=== PATIENT | male | born 1980 | race Caucasian/White ===

== ENCOUNTER 2018-09-21 09:28 | Outpatient (REF) | payer SELFPAY ==
[2018-09-21 12:06] LABS: Abs Immature Grans 0.01 k/cumm (0.0-0.09); Absolute Basophil Count 0.02 k/cumm (0.0-0.2); Absolute Eosinophil Count 0.17 k/cumm (0.0-0.7); Absolute Lymphocyte Count 1.43 k/cumm (1.2-3.4); Absolute Monocyte Count 0.27 k/cumm (0.11-0.7); Basophils % 0.5; Eosinophils % 4.6; HCT 43.1 % (40.0-50.0); HGB 14.4 g/dL (13.5-17.5); Immature Grans % 0.3; Lymphocytes % 38.6; Mean Corp. HGB Concentration 33.4 g/dL (32.0-36.0); Mean Corpuscular Hemoglobin 30.6 pg (27.0-33.0); Mean Corpuscular Volume 91.7 fL (80-95); Mean Platelet Volume 10.3 fL (8.0-11.0); Monocytes % 7.3; Neutrophils % 48.7; Platelet Count 232 x1000/uL (130-400); RBC Distribution Width 13.5 % (11.8-14.1)
[2018-09-21 12:14] LABS: ALT 35 U/L (12-78); AST 29 U/L (15-37); Albumin 4.2 g/dL (3.4-5.0); Alkaline Phosphatase 73 U/L (46-116); Anion Gap 9.3 mmol/L (3-11); BUN 23 mg/dL (7-18); Bilirubin, Total 0.6 mg/dL (0.2-1.0); CO2 29.7 mmol/L (21.0-32.0); CREATININE 1.14 mg/dL (0.70-1.30); Calcium 9.3 mg/dL (8.5-10.1); Chloride 101 mmol/L (98-107); Cholesterol 183 mg/dL (50-200); Glucose 114 mg/dL (70-100); HDL Cholesterol 48 mg/dL (40-60); LDL CHOLESTEROL 106 mg/dL (<100); Potassium 4.4 mmol/L (3.5-5.1); Sodium 140 mmol/L (136-145); Total Protein 8.2 g/dL (6.4-8.2); Triglyceride 116 mg/dL (30-150)
== END 2018-09-21 09:48 ==
LOC: NCHCN 09:28
PROVIDERS: PCP Nurse Practitioner Family; Visit Provider Nurse Practitioner Family
DX: Z00.00 Encounter for general adult medical examination without abnormal findings (principal); Z13.220 Encounter for screening for lipoid disorders; Z13.228 Encounter for screening for other metabolic disorders; Z13.0 Encounter for screening for diseases of the blood and blood-forming organs and certain disorders involving the immune mechanism
CPT/HCPCS: 80053; 80061; 83721; 85025

== ENCOUNTER 2018-09-27 14:10 | Outpatient (REF) | payer SELFPAY ==
[2018-09-27 19:39] LABS: Absolute Basophil Count 0.01 k/cumm (0.0-0.2); Absolute Eosinophil Count 0.09 k/cumm (0.0-0.7); Absolute Lymphocyte Count 1.62 k/cumm (1.2-3.4); Absolute Monocyte Count 0.26 k/cumm (0.11-0.7); Absolute Neutrophil Count 2.18 k/cumm (1.2-6.7); Basophils % 0.2; Eosinophils % 2.2; HCT 39.6 % (40.0-50.0); HGB 13.4 g/dL (13.5-17.5); Lymphocytes % 38.9; Mean Corp. HGB Concentration 33.8 g/dL (32.0-36.0); Mean Corpuscular Hemoglobin 30.7 pg (27.0-33.0); Mean Corpuscular Volume 90.8 fL (80-95); Mean Platelet Volume 10.3 fL (8.0-11.0); Monocytes % 6.3; Neutrophils % 52.4; Platelet Count 238 x1000/uL (130-400); RBC 4.36 m/cumm (4.50-6.00); RBC Distribution Width 13.2 % (11.8-14.1); White Blood Cell Count 4.16 k/cumm (4.4-10.8)
== END 2018-09-27 14:30 ==
LOC: NCHCN 14:10
PROVIDERS: PCP Nurse Practitioner Family; Visit Provider Nurse Practitioner Family
DX: R51 Headache (principal); Z00.00 Encounter for general adult medical examination without abnormal findings
CPT/HCPCS: 85025

== ENCOUNTER 2021-01-07 14:45 | Outpatient (REF) | payer OTHER, SELFPAY ==
[2021-01-07 19:34] LABS: Hemoglobin A1C 6.3 % (<5.7)
== END 2021-01-07 14:46 | disposition home or self-care (01) ==
LOC: NCHCN 14:45
PROVIDERS: PCP Nurse Practitioner Family; Visit Provider Nurse Practitioner
DX: R73.9 Hyperglycemia, unspecified (principal)
CPT/HCPCS: 83036

== ENCOUNTER 2022-07-14 13:50 | Outpatient (REF) | payer BC, SELFPAY ==
[2022-07-14 17:22] LABS: Absolute Basophil Count 0.02 10^3/uL (0.0-0.2); Absolute Eosinophil Count 0.05 10^3/uL (0.0-0.7); Absolute Lymphocyte Count 1.13 10^3/uL (1.2-3.4); Absolute Monocyte Count 0.23 10^3/uL (0.1-0.8); Absolute Neutrophil Count 2.77 10^3/uL (1.2-6.7); Basophils % 0.5; Eosinophils % 1.2; HCT 41.6 % (40.0-50.0); HGB 13.8 g/dL (13.5-17.5); Lymphocytes % 26.9; MCH 30.2 pg (27.0-33.0); MCHC 33.2 % (32.0-36.0); MCV 91 fL (80-95); MPV 10.1 fL (8.0-11.0); Monocytes % 5.5; Neutrophils % 65.9; Platelet Count 268 10^3/uL (130-400); RBC 4.57 10^6/uL (4.36-5.78); RDW 13.3 % (11.8-14.1); RDW-SD 44.8 fL
[2022-07-14 17:46] LABS: Hemoglobin A1C 6.4 % (<5.7)
[2022-07-14 18:00] LABS: Vitamin D 25 Total 34.9 ng/mL (30-100)
[2022-07-14 18:03] LABS: ALT 31 U/L (16-63); AST 18 U/L (15-37); Albumin 4.4 g/dL (3.4-5.0); Alkaline Phosphatase 76 U/L (46-116); Anion Gap 7.5 mmol/L (3-11); BUN 20 mg/dL (7-18); Bilirubin, Total 0.5 mg/dL (0.2-1.0); CO2 29.5 mmol/L (21.0-32.0); Calculated LDL 94 mg/dL (<100); Chloride 104 mmol/L (98-107); Cholesterol 156 mg/dL (<200); Estimated GFR 96.97 (mL/min/1.73m2); Glucose 118 mg/dL (74-106); HDL Cholesterol 51 mg/dL (40-60); Potassium 4.1 mmol/L (3.5-5.1); Sodium 141 mmol/L (136-145); TSH (W/Ref FT4) 0.72 uIU/mL (0.36-3.74); Total Protein 8.2 g/dL (6.4-8.2); Triglyceride 55 mg/dL (<150); Vitamin B12 1041 pg/mL (193-986)
== END 2022-07-14 13:51 | disposition home or self-care (01) ==
LOC: NCHCN 13:50
PROVIDERS: PCP Nurse Practitioner Family; Visit Provider Nurse Practitioner Family
DX: F43.0 Acute stress reaction (principal); R73.09 Other abnormal glucose; R51.9 Headache, unspecified; Z13.220 Encounter for screening for lipoid disorders; Z80.0 Family history of malignant neoplasm of digestive organs; R79.89 Other specified abnormal findings of blood chemistry
CPT/HCPCS: 80053; 80061; 82306; 82607; 83036; 84443; 85025

== ENCOUNTER 2024-05-06 14:15 | Outpatient (CLI) | payer SELFPAY ==
--- NOTE | 2024-05-06 15:14 | DI.RAD_ITS ---
Exam(s) XR THUMB RT EXAM: XR THUMB RT CLINICAL HISTORY: PAIN IN RIGHT THUMB ICD-10: M79.644. TECHNIQUE: 2D digital imaging was performed of the right finger. Three views were obtained. PA/AP, oblique, and lateral views were obtained. COMPARISON: CR RIGHT LITTLE FINGER from 12/23/2007 FINDINGS: BONES: No acute fracture is present. No bony destructive lesion is seen. JOINTS: No dislocation present. The joint spaces are well maintained. No joint space narrowing, ero sions or osteophytes are present. SOFT TISSUE: There is mild soft tissue swelling of the thumb. No radiopaque foreign bodies or soft t issue gas is present. IMPRESSION: Mild soft tissue swelling of the thumb but otherwise unremarkable examination. DATA REPOSITORY: RADIATION DOSE DELIVERED:
--- NOTE | 2024-05-06 15:36 | DI.VRAD_ITS ---
PROCEDURE INFORMATION: Exam: XR Right Finger(s) Exam date and time: 05/06/2024 3:05 PM Age: 44 years old Clinical indication: Pain; Finger(s); Right; Patient HX: No known trauma TECHNIQUE: Imaging protocol: Radiologic exam of the right fingers. Views: Minimum 2 views. COMPARISON: No relevant prior studies available. FINDINGS: Bones/joints: See Soft tissues finding. Soft tissues: There is soft tissue swelling involving the thumb. Bone density is appropriate. Bony alignment is anatomic. No definite fracture seen. IMPRESSION: Soft tissue swelling involves the thumb. No acute bony abnormality. Dictated and Authenticated by: Tere Patel MD. Ordering:JC BUTCHER MD
== END 2024-05-06 14:35 ==
PROVIDERS: PCP Nurse Practitioner Family; Visit Provider Nurse Practitioner Family
DX: M79.644 Pain in right finger(s) (principal)
CPT/HCPCS: 73140

== ENCOUNTER 2024-06-19 11:01 | Outpatient (REF) | payer SELFPAY ==
[2024-06-19 17:30] LABS: Anion Gap 9.6 mmol/L (3-11); BUN 20 mg/dL (7-18); CO2 28.4 mmol/L (21.0-32.0); CREATININE 1.2 mg/dL (0.70-1.30); Calcium 9.6 mg/dL (8.5-10.1); Chloride 104 mmol/L (98-107); Estimated GFR 76.95 (mL/min/1.73m2); Glucose 120 mg/dL (74-106); Potassium 4.6 mmol/L (3.5-5.1); Sodium 142 mmol/L (136-145)
[2024-06-19 19:55] LABS: Hemoglobin A1C 6.3 % (<5.7)
[2024-06-20 17:35] LABS: PSA, Screening 1.4 ng/mL (<=2.5)
== END 2024-06-19 11:02 | disposition home or self-care (01) ==
LOC: NCHCN 11:01
PROVIDERS: PCP Nurse Practitioner Family; Visit Provider Nurse Practitioner Family
DX: R51.9 Headache, unspecified (principal); Z80.42 Family history of malignant neoplasm of prostate; R73.03 Prediabetes
CPT/HCPCS: 80048; 84153; 83036